=== PATIENT | male | born 1940 | race Caucasian/White ===

== ENCOUNTER 2018-02-02 09:27 | Emergency (ER) | payer MEDICARE, BC ==
--- NOTE | 2018-02-02 11:24 | EDM.PDOC ---
ED HPI GENERAL MEDICAL PROBLEM - General Chief Complaint: Cardiovascular Problem Stated Complaint: LACERATION ON LEFT VAUGHN, SOB Time Seen by Provider: 02/02/18 11:18 Source of Information: Reports: Patient, Family () - History of Present Illness INITIAL COMMENTS - FREE TEXT/NARRATIVE: Pt fell out of the boat 2 days ago injuring left vaughn. Has small abrasion. Here vacationing. With complaint of shortness of breath and not feeling well. states that he says mild dementia and does fill his own med box. Sees cardiology at [facility]. Did have a heart cath in 2018 that was normal. History of stent x 1. Chronic edema to lower legs as pt does not wear stockings. Onset: Gradual Duration: Getting Worse Location: Reports: Chest Severity: Moderate Improves with: Reports: Rest Worsens with: Reports: Movement Context: Reports: Activity Associated Symptoms: Reports: Shortness of Breath - Related Data Allergies Allergy/AdvReac Type Severity Reaction Status Date / Time Buuvbbn-Iko-Ynj Reductase Allergy Muscle Verified 02/02/18 11:06 Inhibitor Weakness Home Meds: Home Meds Escitalopram [Lexapro] 02/02/18 [History] Folic Acid 02/02/18 [History] Lisinopril/Hydrochlorothiazide [Lisinopril-Hctz 20-12.5 mg Tab] 02/02/18 [ History] Lovastatin 02/02/18 [History] Metoprolol Succinate [Toprol XL] 02/02/18 [History] Potassium Chloride [Klor-Con M20] 02/02/18 [History] Tamsulosin HCl 02/02/18 [History] amLODIPine Besylate [Amlodipine Besylate] 02/02/18 [History] Past Medical History Oncologic (Cancer) History: Reports: Bladder - Past Surgical History Cardiovascular Surgical History: Reports: Aneurysm, Coronary Artery Stent GI Surgical History: Reports: Hernia, Abdominal Social & Family History - Tobacco Use Smoking Status *Q: Never Smoker ED ROS GENERAL - Review of Systems Review Of Systems: See Below Constitutional: Reports: No Symptoms HEENT: Reports: No Symptoms Respiratory: Reports: Shortness of Breath Cardiovascular: Reports: Dyspnea on Exertion Endocrine: Reports: No Symptoms GI/Abdominal: Reports: No Symptoms : Reports: No Symptoms Skin: Reports: Wound (to left lower leg) Neurological: Reports: No Symptoms (left vaughn with skin tear) Psychiatric: Reports: Other (mild dementia, cooperative) Hematologic/Lymphatic: Reports: No Symptoms Immunologic: Reports: No Symptoms ED EXAM, GENERAL - Physical Exam Exam: See Below Exam Limited By: No Limitations General Appearance: Alert, WD/WN, No Apparent Distress Ears: Normal External Exam, Normal Canal, Hearing Grossly Normal, Normal TMs Nose: Normal Inspection, Normal Mucosa, No Blood Throat/Mouth: Normal Inspection, Normal Lips, Normal Teeth, Normal Gums, Normal Oropharynx, Normal Voice, No Airway Compromise Head: Atraumatic, Normocephalic Neck: Normal Inspection, Supple, Non-Tender, Full Range of Motion Respiratory/Chest: No Respiratory Distress, Lungs Clear, Normal Breath Sounds, No Accessory Muscle Use, Chest Non-Tender Cardiovascular: Bradycardia, Other (1+edema to lower legs bilaterally) GI/Abdominal: Normal Bowel Sounds, Soft, Non-Tender, No Organomegaly, No Distention, No Abnormal Bruit, No Mass Extremities: Pedal Edema Neurological: Alert, CN II-XII Intact, Normal Gait, Normal Reflexes, No Motor/ Sensory Deficits, Memory Loss Recent Events Psychiatric: Normal Affect Skin Exam: Wound/Incision (skin tear to left lower vaughn, cleaned and dressed with tegaderm) Course - Vital Signs Last Recorded V/S: Last Vital Signs Temp 97.8 F 02/02/18 10:57 Pulse 60 02/02/18 10:57 Resp 22 H 02/02/18 10:57 BP 151/73 H 02/02/18 10:57 Pulse Ox 95 02/02/18 10:57 - Orders/Labs/Meds Orders: Active Orders 24 hr Category Date Time Status EKG Documentation Completion [RC] ASDIRECTED Care 02/02/18 11:16 Active Chest 2V [CR] Stat Exams 02/02/18 11:17 Taken EKG 12 Lead [EK] Routine Ther 02/02/18 11:15 Ordered Labs: Laboratory Tests 02/02/18 02/02/18 02/02/18 Range/Units 11:29 11:29 11:29 WBC 9.9 (4.5-11.0) K/uL RBC 4.14 L (4.30-5.90) M/uL Hgb 12.6 (12.0-15.0) g/dL Hct 37.7 L (40.0-54.0) % MCV 91 (80-98) fL MCH 30 (27-31) pg MCHC 33 (32-36) % Plt Count 204 (150-400) K/uL Neut % (Auto) 67 H (36-66) % Lymph % (Auto) 17 L (24-44) % [place] % (Auto) 15 H (2-6) % Eos % (Auto) 1 L (2-4) % Baso % (Auto) 0 (0-1) % PT 11.3 (9.5-12.0) sec INR 1.03 (0.80-1.20) Sodium 137 L (140-148) mmol/L Potassium 3.9 (3.6-5.2) mmol/L Chloride 102 (100-108) mmol/L Carbon Dioxide 27 (21-32) mmol/L Anion Gap 11.9 (5.0-14.0) mmol/L BUN 20 H (7-18) mg/dL Creatinine 1.2 (0.8-1.3) mg/dL Est Cr Clr Drug Dosing 54.03 mL/min Estimated GFR (MDRD) 59 L (>60) Glucose 101 (74-106) mg/dL Calcium 8.6 (8.5-10.1) mg/dL Total Bilirubin 0.6 (0.2-1.0) mg/dL AST 21 (15-37) U/L ALT 22 (12-78) U/L Alkaline Phosphatase 61 (46-116) U/L Troponin I (0.000-0.056) ng/mL C-Reactive Protein (0.0-0.3) mg/dL Total Protein 6.1 L (6.4-8.2) g/dL Albumin 3.2 L (3.4-5.0) g/dL Globulin 2.9 (2.3-3.5) g/dL Albumin/Globulin Ratio 1.1 L (1.2-2.2) TSH, Ultra Sensitive (0.358-3.740) uIU/mL 02/02/18 02/02/18 Range/Units 11:29 11:33 WBC (4.5-11.0) K/uL RBC (4.30-5.90) M/uL Hgb (12.0-15.0) g/dL Hct (40.0-54.0) % MCV (80-98) fL MCH (27-31) pg MCHC (32-36) % Plt Count (150-400) K/uL Neut % (Auto) (36-66) % Lymph % (Auto) (24-44) % [place] % (Auto) (2-6) % Eos % (Auto) (2-4) % Baso % (Auto) (0-1) % PT (9.5-12.0) sec INR (0.80-1.20) Sodium (140-148) mmol/L Potassium (3.6-5.2) mmol/L Chloride (100-108) mmol/L Carbon Dioxide (21-32) mmol/L Anion Gap (5.0-14.0) mmol/L BUN (7-18) mg/dL Creatinine (0.8-1.3) mg/dL Est Cr Clr Drug Dosing mL/min Estimated GFR (MDRD) (>60) Glucose (74-106) mg/dL Calcium (8.5-10.1) mg/dL Total Bilirubin (0.2-1.0) mg/dL AST (15-37) U/L ALT (12-78) U/L Alkaline Phosphatase (46-116) U/L Troponin I < 0.017 (0.000-0.056) ng/mL C-Reactive Protein 1.06 H (0.0-0.3) mg/dL Total Protein (6.4-8.2) g/dL Albumin (3.4-5.0) g/dL Globulin (2.3-3.5) g/dL Albumin/Globulin Ratio (1.2-2.2) TSH, Ultra Sensitive 2.410 (0.358-3.740) uIU/mL Departure - Departure Time of Disposition: 12:28 Disposition: Home, Self-Care 01 Condition: Good Clinical Impression: Bradycardia with 51-60 beats per minute, Cellulitis of left lower limb Edema Qualifiers: Edema type: localized Qualified Code(s): R60.0 - Localized edema Instructions: Cellulitis, Adult Referrals: PCP,None [Primary Care Provider] - Forms: ED Department Discharge Additional Instructions: Labs stable. Chest xray stable. EKG with sinus bradycardia with frequent PVC' s. Pt has appointment with cardiology in 2 weeks. Will bring copies of this workup along to visit. will double check meds in pill boxes and will take over this duty for safety. Pt is willing to let her do this. Pt will get compression stockings today and wear during the day and off in the pm. Is to elevate feet during the day. Limit salt intake. to check b/p and pulse daily and bring with her to cardiology appointment. She will purchase a new machine today. Tegaderm is to be changed every 7 days or so to allow healing to skin tears. Rx for Cephalexin 500mg TID x 7 days given. Discussed safety when getting on and off the boat. - Problem List & Annotations (1) Bradycardia with 51-60 beats per minute SNOMED Code(s): 48819721 Code(s): R00.1 - BRADYCARDIA, UNSPECIFIED Status: Acute Priority: Medium Current Visit: Yes (2) Cellulitis of left lower limb SNOMED Code(s): 053104209 Code(s): L03.116 - CELLULITIS OF LEFT LOWER LIMB Status: Acute Priority: Medium Current Visit: Yes (3) Edema SNOMED Code(s): 147096325, 118346639 Code(s): R60.9 - EDEMA, UNSPECIFIED Status: Acute Priority: Low Current Visit: Yes Qualifiers: Edema type: generalized Qualified Code(s): R60.1 - Generalized edema - My Orders Last 24 Hours: My Active Orders 02/02/18 11:15 EKG 12 Lead [EK] Routine 02/02/18 11:16 EKG Documentation Completion [RC] ASDIRECTED 02/02/18 11:17 Chest 2V [CR] Stat - Assessment/Plan Last 24 Hours: My Active Orders 02/02/18 11:15 EKG 12 Lead [EK] Routine 02/02/18 11:16 EKG Documentation Completion [RC] ASDIRECTED 02/02/18 11:17 Chest 2V [CR] Stat
--- NOTE | 2018-02-03 11:01 | CR ---
CHEST: 2 view CLINICAL HISTORY:SOB, bradycardia COMPARISON:None FINDINGS: Heart is mildly enlarged. Pulmonary vascularity is normal. Lungs are clear. There is no ef fusion . IMPRESSION: Mild cardiomegaly No acute cardiopulmonary process
== END 2018-02-02 13:03 | disposition home or self-care (01) ==
LOC: JP.ED 09:27
DX: R00.1 Bradycardia, unspecified (principal); R60.0 Localized edema; L03.116 Cellulitis of left lower limb; Z88.8 Allergy status to other drugs, medicaments and biological substances; Z79.899 Other long term (current) drug therapy
CPT/HCPCS: 36415; 71046; 71046-26; 80053; 84443; 84484; 85025; 85610; 86140; 93005; 99284; 99284-25

== ENCOUNTER 2018-02-09 07:30 | Emergency (ER) | payer MEDICARE, BC ==
[2018-02-09] MEDS ORDERED: Cephalexin 250 MG Cap PO ONE (08:00)
[2018-02-09] MEDS ORDERED: Bacitracin Oint 1 GM U/D Packet TOP ONE (08:00)
--- NOTE | 2018-02-09 08:06 | EDM.PDOC ---
ED HPI GENERAL MEDICAL PROBLEM - General Chief Complaint: Wound Recheck Stated Complaint: WOUND ON LEFT VAUGHN FROM LAST WEEK Time Seen by Provider: 02/09/18 07:50 Source of Information: Reports: Patient, Old Records History Limitations: Reports: Other (Limited records, is from [place]) - History of Present Illness INITIAL COMMENTS - FREE TEXT/NARRATIVE: 77 yo male fell on a dock about a week ago and was seen here for a left vaughn abrasion. He returns today with increasing redness around this leg wound. He denies fever or chills. There is drainage. Is from [place] and will be here about another week. Onset: Gradual Onset Date: 02/07/18 Duration: Day(s):, Getting Worse Location: Reports: Lower Extremity, Left Quality: Reports: Dull Severity: Mild Improves with: Reports: None Worsens with: Reports: Other (time) Context: Reports: Trauma (see HPI) Associated Symptoms: Reports: No Other Symptoms Treatments SPECIAL PROCEDURES TECHNOLOGIST: Reports: Other (see below) (Tegaderm dressing) Left Lower Leg Pain Score (Numeric/FACES): 4 - Related Data Allergies Allergy/AdvReac Type Severity Reaction Status Date / Time Zonqcwl-Tag-Dmw Reductase Allergy Muscle Verified 02/02/18 11:06 Inhibitor Weakness Home Meds: Home Meds Escitalopram [Lexapro] 02/02/18 [History] Folic Acid 02/02/18 [History] Lisinopril/Hydrochlorothiazide [Lisinopril-Hctz 20-12.5 mg Tab] 02/02/18 [ History] Lovastatin 02/02/18 [History] Metoprolol Succinate [Toprol XL] 02/02/18 [History] Potassium Chloride [Klor-Con M20] 02/02/18 [History] Tamsulosin HCl 02/02/18 [History] amLODIPine Besylate [Amlodipine Besylate] 02/02/18 [History] Past Medical History Oncologic (Cancer) History: Reports: Bladder - Infectious Disease History Infectious Disease History: Reports: Chicken Pox, Measles, Mumps - Past Surgical History HEENT Surgical History: Reports: Tonsillectomy Cardiovascular Surgical History: Reports: AAA Repair, Aneurysm, Coronary Artery Stent GI Surgical History: Reports: Hernia, Abdominal Male Surgical History: Reports: Vasectomy Musculoskeletal Surgical History: Reports: Hip Replacement Social & Family History - Tobacco Use Smoking Status *Q: Former Smoker Used Tobacco, but Quit: Yes Month/Year Tobacco Last Used: many years ago - Caffeine Use Caffeine Use: Reports: Coffee - Recreational Drug Use Recreational Drug Use: No ED ROS GENERAL - Review of Systems Review Of Systems: See Below Constitutional: Reports: No Symptoms Skin: Reports: Erythema (around abrasion), Wound ED EXAM, SKIN/RASH Exam: See Below Exam Limited By: No Limitations General Appearance: Alert, WD/WN, No Apparent Distress Skin: Warm, Erythema, Increased Warmth (in area around his L vaughn abrasion. Drainage is present. ) Location, Skin: Lower Extremity, Left Characteristics: Erythematous Associated features: Warmth, Inflammation. No: Swelling, Induration Lymphatic: No Adenopathy Course - Vital Signs Last Recorded V/S: Last Vital Signs Temp 36.6 C 02/09/18 07:43 Pulse 50 L 02/09/18 07:43 Resp 18 02/09/18 07:43 BP 153/70 H 02/09/18 07:43 Pulse Ox 95 02/09/18 07:43 - Orders/Labs/Meds Orders: Active Orders 24 hr Category Date Time Status Vaccines to be Administered [RC] PER UNIT ROUTINE Care 02/09/18 08:07 Ordered Meds: Medications Discontinued Medications Generic Name Dose Route Start Last Admin Trade Name Freq PRN Reason Stop Dose Admin Bacitracin 1 dose 02/09/18 08:00 Bacitracin Oint 1 Gm TOP 02/09/18 08:01 ONETIME ONE Cephalexin 1,000 mg 02/09/18 08:00 Keflex PO 02/09/18 08:01 ONETIME ONE Diphtheria/Tetanus/Acell Pertussis 0.5 ml 02/09/18 08:07 Adacel IM 02/09/18 08:08 .ONCE ONE Departure - Departure Time of Disposition: 08:20 Disposition: Home, Self-Care 01 Condition: Good Clinical Impression: Cellulitis Qualifiers: Site of cellulitis: extremity Site of cellulitis of extremity: lower extremity Laterality: left Qualified Code(s): L03.116 - Cellulitis of left lower limb - Discharge Information *PRESCRIPTION DRUG MONITORING PROGRAM REVIEWED*: Not Applicable *COPY OF PRESCRIPTION DRUG MONITORING REPORT IN PATIENT SHANA: Not Applicable Instructions: Cellulitis, Adult Referrals: PCP,None [Primary Care Provider] - Forms: ED Department Discharge Additional Instructions: Clean wound twice daily with soap and water. Dry. Apply antibiotic ointment and new gauze. Recheck in urgent care in 2 days, return if a lot worse in the interim. Take cephalexin as directed. Acetaminophen as needed for pain relief. - My Orders Last 24 Hours: My Active Orders 02/09/18 08:07 Vaccines to be Administered [RC] PER UNIT ROUTINE - Assessment/Plan Last 24 Hours: My Active Orders 02/09/18 08:07 Vaccines to be Administered [RC] PER UNIT ROUTINE
[2018-02-09] MEDS ORDERED: Diphtheria,Pertussis(Acell),Tetanus Vaccine 0.5 ML SDV IM ONE (08:07)
== END 2018-02-09 08:25 | disposition home or self-care (01) ==
LOC: JP.ED 07:30
DX: L03.116 Cellulitis of left lower limb (principal); S80.812A Abrasion, left lower leg, initial encounter; Z23 Encounter for immunization; Z88.8 Allergy status to other drugs, medicaments and biological substances; Z87.891 Personal history of nicotine dependence; W19.XXXA Unspecified fall, initial encounter
CPT/HCPCS: 90471; 90715; 99283; A9270